=== PATIENT | male | born 1985 | race Caucasian/White ===

== ENCOUNTER 2016-12-15 12:10 | Emergency (ER) | payer SELFPAY ==
[2016-12-15 12:19] VITALS: BP 132/75; PULSE 68; TEMP 98; BMI 23.8
--- NOTE | 2016-12-15 13:23 | PDOC ---
History of Present Illness - General Chief Complaint: Rash Stated Complaint: INSECT BITE Time Seen by Provider: 12/15/16 13:05 History Source: Patient Exam Limitations: No Limitations - History of Present Illness Initial Comments: 12/15/16 13:21 Patient is a 31-year-old male, no significant medical history currently on no medication and presents with multiple bug bites, one to left side of face with lower eyelid swelling, 2 to left lower leg, 1 to left upper leg with surrounding erythema. Areas are pruritic, patient denies any recent travel. Fever. No pain. Areas are pruritic. No streaking. Allergies: No known allergies Medications: Medication list Family History: Non-contributory Social History: Denies smoking, alcohol use, or IVDU Vital signs on arrival are notable for pulse of 96. Review of Systems GENERAL/CONSTITUTIONAL: No fever or chills. No weakness. No weight change. HEAD, EYES, EARS, NOSE AND THROAT: No change in vision. No ear pain or discharge. No sore throat. CARDIOVASCULAR: No chest pain or shortness of breath. RESPIRATORY: No cough, wheezing, or hemoptysis. GASTROINTESTINAL: No nausea, vomiting, diarrhea or constipation. No rectal bleeding. GENITOURINARY: No dysuria, frequency, or change in urination. MUSCULOSKELETAL: No joint or muscle swelling or pain. No neck or back pain. SKIN: No rash or easy bruising. Multiple pruritic macular lesions to legs and one to face. Swelling to the left lower lid. NEUROLOGIC: No headache, vertigo, loss of consciousness, or loss of sensation. ENDOCRINE: No increased thirst. No abnormal weight change. HEMATOLOGIC/LYMPHATIC: No anemia, easy bleeding, or history of blood clots. No Lymphadenopathy ALLERGIC/IMMUNOLOGIC: No hives or skin allergy. No latex allergy. Physical Exam: GENERAL: The patient is awake, alert, and fully oriented, in no acute distress. HEAD: Normal with no signs of trauma. EYES: Pupils equal, round and reactive to light, extraocular movements intact, sclera anicteric, conjunctiva clear. Edema to the left lower lid, there is a small defined reddened area consistent with localized bug bite reaction. ENT: Ears normal, nares patent, oropharynx clear without exudates. Moist mucous membranes. No uvula deviation NECK: Normal range of motion, supple without lymphadenopathy, JVD, or masses. LUNGS: Breath sounds equal, clear to auscultation bilaterally. No wheezes, and no crackles. HEART: Regular rate and rhythm, normal S1 and S2 without murmur, rub or gallop. ABDOMEN: Soft, nontender, normoactive bowel sounds. No guarding, no rebound. No masses. No bruising or abrasions MUSCULOSKELETAL: Normal range of motion, no edema. No clubbing or cyanosis. No cords, erythema, or tenderness. No CVA Tenderness with fist. NEUROLOGICAL: Cranial nerves II through XII grossly intact. Normal speech, normal gait. PSYCH: Normal mood, normal affect. SKIN: Warm, Dry, normal turgor, total pruritic lesions, one to face with surrounding edema, 2 to lower leg erythematous with surrounding edema, no erythema, 1 to left upper leg with defined circumferential erythema. 12/15/16 14:14 Past History - Past Medical History Allergies/Adverse Reactions: Allergies Allergy/AdvReac Type Severity Reaction Status Date / Time No Known Allergies Allergy Verified 12/15/16 12:19 Home Medications: Ambulatory Orders Emtricitabine/Tenofovir [Truvada -] 1 tab PO DAILY 08/03/14 Doxycycline Hyclate 200 mg PO ONCE #2 capsule 12/15/16 Hydrocortisone 0.5% Cream [Hytone 0.5% Cream -] 1 applic TP BID #1 tube HIV: Yes Suicide Attempt (Hx): No - Psycho/Social/Smoking Cessation Hx Anxiety: Yes Suicidal Ideation: No Smoking History: Never smoked Information on smoking cessation initiated: No Hx Alcohol Use: Yes (2 DAYS A WEEK) Substance Use Type: Alcohol *Physical Exam - Vital Signs Last Vital Signs Temp Pulse Resp BP Pulse Ox 98 F 68 18 132/75 99 12/15/16 12:17 12/15/16 12:17 12/15/16 12:17 12/15/16 12:17 12/15/16 12:17 Medical Decision Making - Medical Decision Making 12/15/16 14:08 A/P: Patient here for valuation multiple pruritic bites, one to the face with surrounding edema, 1 to left leg with circumferential erythema. Because of the edema patient was concerned it may be a spider bite. There is no necrotic center, or area with central punctum. The reddened area to the left upper leg without bulls eye pattern. Represents more of a localized reaction to a bug bite. ? mosquito however can not rule out tick bite fully. I will send blood for lyme and Ehrilichia. Doxy 200 mg PO x 1. Hydrocortisone cream to area for pruritus. If any increased redness, swelling, fever, or any other concerns will need to return back to ER. I discussed the physical exam findings, ancillary test results and final diagnoses with the patient. I answered all of the patient's questions. The patient was satisfied with the care received and felt comfortable with the discharge plan and treatment plan. The patient will call to arrange follow-up and will return to the Emergency Department with any new, persistent or worsening symptoms. *DC/Admit/Observation/Transfer Diagnosis at time of Disposition: Bug bite Qualifiers: Encounter type: initial encounter Qualified Code(s): W57.XXXA - Bitten or stung by nonvenomous insect and other nonvenomous arthropods, initial encounter - Discharge Dispostion Disposition: HOME Condition at time of disposition: Good Admit: No - Prescriptions Prescriptions: Doxycycline Hyclate 200 mg PO ONCE #2 capsule Hydrocortisone 0.5% Cream [Hytone 0.5% Cream -] 1 applic TP BID #1 tube - Referrals Referrals: Marcel Bazan [Non Staff, Medical] - - Patient Instructions Additional Instructions: Please monitor area for an increased redness swelling or signs of infection including fever , if noted return to emergency department
== END 2016-12-15 14:20 | disposition home or self-care (01) ==
LOC: JERFT 12:10
DX: S00.86XA Insect bite (nonvenomous) of other part of head, initial encounter (principal); S80.862A Insect bite (nonvenomous), left lower leg, initial encounter; W57.XXXA Bitten or stung by nonvenomous insect and other nonvenomous arthropods, initial encounter; Y93.89 Activity, other specified; Y92.89 Other specified places as the place of occurrence of the external cause; Z21 Asymptomatic human immunodeficiency virus [HIV] infection status
CPT/HCPCS: 36415; 86618; 86666; 99281-25

== ENCOUNTER 2021-11-30 10:30 | Emergency (ER) | payer SELFPAY ==
[2021-11-30 10:43] VITALS: BP 115/71; PULSE 71; RESP 18; TEMP 98.8; BMI 28.1
[2021-11-30] MEDS ORDERED: IBUPROFEN 600 MG TABLET (FP) PO ONE ×2 (11:57→12:15)
== END 2021-11-30 14:00 | disposition home or self-care (01) ==
LOC: JER 10:30
DX: R07.9 Chest pain, unspecified (principal)
CPT/HCPCS: 71046-TC-FY; 93005; 93010; 99284-25; C9803-CS; U0003; U0005

== ENCOUNTER 2022-10-19 12:21 | Emergency (ER) | payer SELFPAY ==
[2022-10-19 12:30] VITALS: BP 130/80; PULSE 74; RESP 18; TEMP 98.2; BMI 25.0
[2022-10-19 13:13] LABS: PH,URINE 5.5 (5.0-8.0); URINE APPEARANCE CLEAR; URINE BILIRUBIN NEGATIVE (NEGATIVE); URINE COLOR YELLOW; URINE GLUCOSE (UA) NEGATIVE (NEGATIVE); URINE KETONE NEGATIVE (NEGATIVE); URINE LEUK ESTERASE NEGATIVE (NEGATIVE); URINE NITRITE NEGATIVE (NEGATIVE); URINE PROTEIN NEGATIVE (NEGATIVE); URINE UROBILINOGEN 0.2 mg/dL (0.2-1.0)
[2022-10-19 15:01] LABS: EOS % 3.5 % (0-4.5); HEMOGLOBIN 14.7 GM/dL (11.7-16.9); LYMPH % 36.7 % (8-40); MCH 35.5 pg (25.7-33.7); MCHC 34.9 g/dl (32.0-35.9); MEAN CELL VOLUME 101.6 fl (80-96); MEAN PLT VOLUME 9.6 fl (7.5-11.1); MONO % 13.6 % (3.8-10.2); NEUT % 45.2 % (42.8-82.8); PLATELET COUNT 174 10^3/uL (134-434); RBC 4.14 M/mm3 (4.00-5.60); RDW 13.5 % (11.9-15.9); WHITE BLOOD COUNT 2.3 K/mm3 (4.0-10.0)
[2022-10-19 15:14] LABS: ACTIVATED PTT 30.7 SECONDS (25.2-36.5)
[2022-10-19 15:45] LABS: POTASSIUM 4.1 mmol/L (3.5-5.1)
[2022-10-19 15:49] LABS: ALBUMIN 3.8 g/dl (3.4-5.0); CALCIUM 8.8 mg/dL (8.5-10.1)
[2022-10-19 15:52] LABS: CREATININE 0.6 mg/dL (0.55-1.3)
[2022-10-19 15:54] LABS: BILIRUBIN,TOTAL 0.6 mg/dL (0.2-1); TOT PROT 9.3 g/dl (6.4-8.2)
[2022-10-19 17:02] LABS: INR 1.04 (0.83-1.09); PROTHROMBIN TIME (PATIENT) 12.1 SEC (9.7-13.0)
== END 2022-10-19 19:16 | disposition home or self-care (01) ==
LOC: JERFT 12:21
DX: R36.1 Hematospermia (principal); F10.10 Alcohol abuse, uncomplicated; R74.01 Elevation of levels of liver transaminase levels
CPT/HCPCS: 36415; 80053; 81003; 82977; 84153; 84154; 85025; 85610; 85730; 86705; 87086; 87340; 87517; 87522; 99283-25

== ENCOUNTER 2023-11-28 11:23 | Inpatient (IN) | payer OTHER ==
[2023-11-28] MEDS ORDERED: ACETAMINOPHEN INJECTION 100 ML IVPB ONE (12:12)
[2023-11-28] MEDS: ACETAMINOPHEN 1000 MG/100 ML BAG IVPB ONE (12:32)
[2023-11-28 12:39] LABS: BASO % 0.9 % (0-2.0); EOS % 0.3 % (0-4.5); HEMATOCRIT 36.6 % (35.4-49); HEMOGLOBIN 12.7 GM/dL (11.7-16.9); LYMPH % 12.3 % (8-40); MCH 35.9 pg (25.7-33.7); MCHC 34.6 g/dl (32.0-35.9); MEAN CELL VOLUME 103.8 fl (80-96); MONO % 6.2 % (3.8-10.2); NEUT % 80.3 % (42.8-82.8); PLATELET COUNT 307 10^3/uL (134-434); RBC 3.53 M/mm3 (4.00-5.60); RDW 12.8 % (11.9-15.9); WHITE BLOOD COUNT 7.6 K/mm3 (4.0-10.0)
[2023-11-28 12:46] LABS: INR 1.1 (0.83-1.09); PROTHROMBIN TIME (PATIENT) 12.6 SEC (9.7-13.0)
[2023-11-28 12:48] LABS: ACTIVATED PTT 33.7 SECONDS (25.2-36.5)
[2023-11-28 12:57] LABS: POTASSIUM 3.8 mmol/L (3.5-5.1)
[2023-11-28 12:59] LABS: ALBUMIN 2.2 g/dl (3.4-5.0); BLOOD UREA NITROGEN 5.3 mg/dL (7-18); CALCIUM 7.6 mg/dL (8.5-10.1)
[2023-11-28 13:02] LABS: CREATININE 0.5 mg/dL (0.55-1.3)
[2023-11-28 13:03] LABS: TOT PROT 7.7 g/dl (6.4-8.2)
[2023-11-28 13:04] LABS: BILIRUBIN,TOTAL 0.7 mg/dL (0.2-1)
[2023-11-28 13:09] LABS: N-TERMINAL BNP 180.5 pg/ml (5-125)
[2023-11-28 13:12] LABS: VENOUS BASE EXCESS 1.4 mmol/L (-2-2); VENOUS O2 SATURATION 88.1 % (70-80); VENOUS PCO2 36.2 mmHg (38-52); VENOUS PH 7.456 (7.310-7.410)
[2023-11-28] MEDS ORDERED: SIMETHICONE 80 MG TAB.CHEW (FP) ONE (13:57)
[2023-11-28] MEDS ORDERED: MAG HYDROX/AL HYDROX/SIMETH 30 ML UNIT-DOSE CUP ONE (13:57)
[2023-11-28] MEDS ORDERED: SULFAMETHOXAZOLE/TRIMETHOPRIM 800MG/160MG D.S. TABLET ONE ×2 (14:01→15:13)
[2023-11-28] MEDS ORDERED: FLUCONAZOLE 100 MG TABLET (UD) ONE (14:01)
[2023-11-28] MEDS ORDERED: DEXAMETHASONE 4 MG TABLET (FP) ONE (14:01)
[2023-11-28] MEDS ORDERED: predniSONE 20 MG TABLET (UD) ONE (14:03)
[2023-11-28] MEDS ORDERED: CEFTRIAXONE 1 GM/50 ML BAG ONE (14:40)
[2023-11-28] MEDS: FLUCONAZOLE 100 MG TABLET (UD) PO ONE (14:43)
[2023-11-28] MEDS: SODIUM CHLORIDE 0.9% 500 ML INFUS.BAG IV ONE (14:43)
[2023-11-28] MEDS: predniSONE 20 MG TABLET (UD) PO ONE (14:47)
[2023-11-28] MEDS ORDERED: SULFAMETHOXAZOLE 80 MG/TRIMETHOPRIM 16 MG/ML VIAL IVPB ONE (15:17)
[2023-11-28] MEDS: SULFAMETHOXAZOLE/TRIMETHOPRIM 800MG/160MG D.S. TABLET PO ONE ×2 (15:39)
[2023-11-28 16:20] LABS: PH,URINE 7.5 (5.0-8.0); URINE APPEARANCE CLEAR; URINE BILIRUBIN NEGATIVE (NEGATIVE); URINE COLOR YELLOW; URINE GLUCOSE (UA) NEGATIVE (NEGATIVE); URINE KETONE NEGATIVE (NEGATIVE); URINE LEUK ESTERASE NEGATIVE (NEGATIVE); URINE NITRITE NEGATIVE (NEGATIVE); URINE PROTEIN NEGATIVE (NEGATIVE)
[2023-11-28] MEDS: AZITHROMYCIN IVPB 500 MG in DEXTROSE 5%-WATER - 250 ML IVPB ONE (16:38)
[2023-11-28] MEDS: SULFAMETHOXAZOLE/TRIMETHOPRIM 320 MG in DEXTROSE 5%-WATER - 250 ML IVPB ONE (17:43)
[2023-11-28] MEDS ORDERED: SULFAMETHOXAZOLE 80 MG/TRIMETHOPRIM 16 MG/ML VIAL IVPB SCH (18:00)
[2023-11-28] MEDS: predniSONE 20 MG TABLET (UD) PO SCH (21:34)
[2023-11-28] MEDS ORDERED: predniSONE 20 MG TABLET (UD) PO ONE (23:00)
[2023-11-29] MEDS: SULFAMETHOXAZOLE/TRIMETHOPRIM 300 MG in DEXTROSE 5%-WATER - 500 ML IVPB SCH ×2 (01:32→12:50)
[2023-11-29 08:18] LABS: BASO % 0.5 % (0-2.0); HEMATOCRIT 35.5 % (35.4-49); HEMOGLOBIN 12.5 GM/dL (11.7-16.9); LYMPH % 21.8 % (8-40); MCH 36.6 pg (25.7-33.7); MCHC 35.2 g/dl (32.0-35.9); MEAN CELL VOLUME 104.1 fl (80-96); MEAN PLT VOLUME 8.5 fl (7.5-11.1); MONO % 4.2 % (3.8-10.2); NEUT % 73.5 % (42.8-82.8); PLATELET COUNT 274 10^3/uL (134-434); RBC 3.42 M/mm3 (4.00-5.60); RDW 12.6 % (11.9-15.9); WHITE BLOOD COUNT 3.3 K/mm3 (4.0-10.0)
[2023-11-29 08:44] LABS: POTASSIUM 4.1 mmol/L (3.5-5.1)
[2023-11-29 08:50] LABS: BLOOD UREA NITROGEN 5.8 mg/dL (7-18)
[2023-11-29 08:52] LABS: PHOSPHOROUS 4.5 mg/dL (2.5-4.9)
[2023-11-29 08:53] LABS: CREATININE 0.4 mg/dL (0.55-1.3)
[2023-11-29 08:54] LABS: BILIRUBIN,TOTAL 0.8 mg/dL (0.2-1); TOT PROT 7.3 g/dl (6.4-8.2)
[2023-11-29] MEDS: FLUCONAZOLE 100 MG TABLET (UD) PO SCH (10:35)
[2023-11-29] MEDS: THIAMINE 100 MG TABLET PO SCH (10:35)
[2023-11-29] MEDS: FOLIC ACID 1 MG TABLET (FP) PO SCH (10:35)
[2023-11-29] MEDS: ENOXAPARIN NA (PORCINE) 40 MG/0.4 ML DISP.SYRIN SQ SCH (10:38)
[2023-11-29] MEDS: SULFAMETHOXAZOLE 80 MG/TRIMETHOPRIM 16 MG/ML VIAL IVPB SCH (12:49)
[2023-11-29] MEDS: CEFTRIAXONE 1 GM in DEXTROSE 5%-WATER - 50 ML IVPB SCH (16:07)
[2023-11-30 06:45] LABS: HEMATOCRIT 36.7 % (35.4-49); MCHC 35.4 g/dl (32.0-35.9); MEAN CELL VOLUME 104.7 fl (80-96); MEAN PLT VOLUME 8.9 fl (7.5-11.1); PLATELET COUNT 303 10^3/uL (134-434); RBC 3.51 M/mm3 (4.00-5.60); RDW 12.7 % (11.9-15.9); WHITE BLOOD COUNT 9.5 K/mm3 (4.0-10.0)
[2023-11-30 07:13] LABS: POTASSIUM 4.5 mmol/L (3.5-5.1)
[2023-11-30 07:16] LABS: ALBUMIN 2.2 g/dl (3.4-5.0); CALCIUM 8.2 mg/dL (8.5-10.1); MAGNESIUM 2.1 mg/dL (1.8-2.4)
[2023-11-30 07:19] LABS: CREATININE 0.5 mg/dL (0.55-1.3); PHOSPHOROUS 4.1 mg/dL (2.5-4.9)
[2023-11-30 07:21] LABS: BILIRUBIN,TOTAL 0.4 mg/dL (0.2-1); TOT PROT 7.5 g/dl (6.4-8.2)
[2023-11-30] MEDS: ALBUTEROL SO4 0.083% IH SOL 2.5 MG/3 ML VIAL.NEB. NEB SCH (15:55)
[2023-11-30 23:47] VITALS: BMI 22.1
[2023-12-01 07:57] LABS: POTASSIUM 5.1 mmol/L (3.5-5.1)
[2023-12-01 08:03] LABS: CALCIUM 8.3 mg/dL (8.5-10.1)
[2023-12-01 08:04] LABS: ALBUMIN 2.3 g/dl (3.4-5.0); BLOOD UREA NITROGEN 11.2 mg/dL (7-18); MAGNESIUM 2.2 mg/dL (1.8-2.4)
[2023-12-01 08:07] LABS: CREATININE 0.6 mg/dL (0.55-1.3)
[2023-12-01 08:08] LABS: BILIRUBIN,TOTAL 0.5 mg/dL (0.2-1)
[2023-12-01 08:09] LABS: TOT PROT 7.3 g/dl (6.4-8.2)
[2023-12-01 08:17] LABS: HEMATOCRIT 36.1 % (35.4-49); HEMOGLOBIN 12.8 GM/dL (11.7-16.9); MCH 36.8 pg (25.7-33.7); MCHC 35.4 g/dl (32.0-35.9); MEAN CELL VOLUME 103.8 fl (80-96); PLATELET COUNT 315 10^3/uL (134-434); RBC 3.48 M/mm3 (4.00-5.60); RDW 13.1 % (11.9-15.9); WHITE BLOOD COUNT 12.2 K/mm3 (4.0-10.0)
[2023-12-02 07:27] LABS: HEMATOCRIT 36.7 % (35.4-49); HEMOGLOBIN 12.7 GM/dL (11.7-16.9); MCH 36.5 pg (25.7-33.7); MCHC 34.7 g/dl (32.0-35.9); MEAN CELL VOLUME 105.1 fl (80-96); MEAN PLT VOLUME 8.7 fl (7.5-11.1); PLATELET COUNT 304 10^3/uL (134-434); RBC 3.49 M/mm3 (4.00-5.60); RDW 12.7 % (11.9-15.9); WHITE BLOOD COUNT 11.1 K/mm3 (4.0-10.0)
[2023-12-02 07:35] LABS: ALBUMIN 2.3 g/dl (3.4-5.0); BLOOD UREA NITROGEN 11.2 mg/dL (7-18)
[2023-12-02 07:36] LABS: BILIRUBIN,TOTAL 0.3 mg/dL (0.2-1); CALCIUM 8.3 mg/dL (8.5-10.1); TOT PROT 7.4 g/dl (6.4-8.2)
[2023-12-02 07:37] LABS: MAGNESIUM 2.3 mg/dL (1.8-2.4)
[2023-12-02 07:38] LABS: CREATININE 0.6 mg/dL (0.55-1.3); PHOSPHOROUS 4.1 mg/dL (2.5-4.9)
[2023-12-02 10:15] LABS: ANISOCYTOSIS 2+; MACROCYTOSIS 2+
[2023-12-03 07:08] LABS: HEMATOCRIT 37.1 % (35.4-49); HEMOGLOBIN 13.1 GM/dL (11.7-16.9); MCHC 35.2 g/dl (32.0-35.9); MEAN CELL VOLUME 105.2 fl (80-96); MEAN PLT VOLUME 9.1 fl (7.5-11.1); PLATELET COUNT 314 10^3/uL (134-434); RBC 3.52 M/mm3 (4.00-5.60); RDW 12.7 % (11.9-15.9); WHITE BLOOD COUNT 9.3 K/mm3 (4.0-10.0)
[2023-12-03 07:20] LABS: POTASSIUM 4.8 mmol/L (3.5-5.1)
[2023-12-03 07:24] LABS: CALCIUM 8.3 mg/dL (8.5-10.1)
[2023-12-03 07:25] LABS: MAGNESIUM 2.2 mg/dL (1.8-2.4)
[2023-12-03 07:28] LABS: ALBUMIN 2.5 g/dl (3.4-5.0); BLOOD UREA NITROGEN 12.9 mg/dL (7-18); CREATININE 0.5 mg/dL (0.55-1.3); PHOSPHOROUS 4.1 mg/dL (2.5-4.9)
[2023-12-03 07:29] LABS: BILIRUBIN,TOTAL 0.4 mg/dL (0.2-1)
[2023-12-03 07:30] LABS: TOT PROT 7.4 g/dl (6.4-8.2)
[2023-12-03] MEDS: predniSONE 20 MG TABLET (UD) PO SCH (09:36)
[2023-12-04 07:21] LABS: HEMOGLOBIN 12.7 GM/dL (11.7-16.9); MCH 36.7 pg (25.7-33.7); MCHC 35.3 g/dl (32.0-35.9); MEAN CELL VOLUME 104.1 fl (80-96); MEAN PLT VOLUME 8.9 fl (7.5-11.1); PLATELET COUNT 330 10^3/uL (134-434); RBC 3.45 M/mm3 (4.00-5.60); RDW 12.7 % (11.9-15.9); WHITE BLOOD COUNT 8.9 K/mm3 (4.0-10.0)
[2023-12-04 07:46] LABS: POTASSIUM 4.1 mmol/L (3.5-5.1)
[2023-12-04 07:48] LABS: ALBUMIN 2.4 g/dl (3.4-5.0)
[2023-12-04 07:49] LABS: BLOOD UREA NITROGEN 10.6 mg/dL (7-18); CALCIUM 8.4 mg/dL (8.5-10.1)
[2023-12-04 07:50] LABS: MAGNESIUM 2.4 mg/dL (1.8-2.4)
[2023-12-04 07:52] LABS: CREATININE 0.6 mg/dL (0.55-1.3); PHOSPHOROUS 4.5 mg/dL (2.5-4.9)
[2023-12-04 07:53] LABS: BILIRUBIN,TOTAL 0.4 mg/dL (0.2-1)
[2023-12-05] MEDS: NYSTATIN 500,000 UNITS/5 ML SUSPENSION PO SCH (00:20)
[2023-12-05 07:52] LABS: HEMATOCRIT 41.3 % (35.4-49); HEMOGLOBIN 14.5 GM/dL (11.7-16.9); MCH 37.1 pg (25.7-33.7); MCHC 35.1 g/dl (32.0-35.9); MEAN CELL VOLUME 105.5 fl (80-96); MEAN PLT VOLUME 8.6 fl (7.5-11.1); PLATELET COUNT 336 10^3/uL (134-434); POTASSIUM 5.5 mmol/L (3.5-5.1); RBC 3.91 M/mm3 (4.00-5.60); WHITE BLOOD COUNT 8.5 K/mm3 (4.0-10.0)
[2023-12-05 07:54] LABS: ALBUMIN 2.8 g/dl (3.4-5.0); BLOOD UREA NITROGEN 14.7 mg/dL (7-18); CALCIUM 8.6 mg/dL (8.5-10.1)
[2023-12-05 07:55] LABS: MAGNESIUM 2.5 mg/dL (1.8-2.4)
[2023-12-05 07:57] LABS: CREATININE 0.7 mg/dL (0.55-1.3)
[2023-12-05 07:58] LABS: PHOSPHOROUS 4.8 mg/dL (2.5-4.9)
[2023-12-05 07:59] LABS: BILIRUBIN,TOTAL 0.4 mg/dL (0.2-1); TOT PROT 7.9 g/dl (6.4-8.2)
[2023-12-05] MEDS ORDERED: SODIUM ZIRCONIUM CYCLOSILICATE (LOKELMA) 5 GM PACKET PO ONE (10:00)
[2023-12-05] MEDS: ATOVAQUONE 750 MG/5 ML (UNIT-DOSE PACKAGING) PO SCH (10:30)
[2023-12-05] MEDS: SODIUM ZIRCONIUM CYCLOSILICATE (LOKELMA) 5 GM PACKET PO SCH (12:43)
[2023-12-06 08:53] LABS: HEMATOCRIT 37.6 % (35.4-49); HEMOGLOBIN 12.9 GM/dL (11.7-16.9); MCH 36.4 pg (25.7-33.7); MCHC 34.4 g/dl (32.0-35.9); MEAN CELL VOLUME 105.9 fl (80-96); MEAN PLT VOLUME 8.5 fl (7.5-11.1); PLATELET COUNT 301 10^3/uL (134-434); RBC 3.55 M/mm3 (4.00-5.60); RDW 13.3 % (11.9-15.9); WHITE BLOOD COUNT 8.7 K/mm3 (4.0-10.0)
[2023-12-06 09:08] LABS: ALBUMIN 2.5 g/dl (3.4-5.0); BLOOD UREA NITROGEN 13.8 mg/dL (7-18); CALCIUM 8.3 mg/dL (8.5-10.1); MAGNESIUM 2.4 mg/dL (1.8-2.4)
[2023-12-06 09:11] LABS: CREATININE 0.4 mg/dL (0.55-1.3); PHOSPHOROUS 4.3 mg/dL (2.5-4.9)
[2023-12-06 09:12] LABS: BILIRUBIN,TOTAL 0.5 mg/dL (0.2-1); TOT PROT 6.7 g/dl (6.4-8.2)
[2023-12-06 13:13] LABS: INR 0.94 (0.83-1.09); PROTHROMBIN TIME (PATIENT) 10.8 SEC (9.7-13.0)
[2023-12-06 13:15] LABS: ACTIVATED PTT 30.9 SECONDS (25.2-36.5)
[2023-12-07 06:43] LABS: HEMATOCRIT 40.2 % (35.4-49); HEMOGLOBIN 13.9 GM/dL (11.7-16.9); MCH 36.7 pg (25.7-33.7); MCHC 34.5 g/dl (32.0-35.9); MEAN CELL VOLUME 106.5 fl (80-96); MEAN PLT VOLUME 8.2 fl (7.5-11.1); PLATELET COUNT 320 10^3/uL (134-434); RBC 3.78 M/mm3 (4.00-5.60); RDW 13.3 % (11.9-15.9); WHITE BLOOD COUNT 7.1 K/mm3 (4.0-10.0)
[2023-12-07 07:07] LABS: POTASSIUM 3.7 mmol/L (3.5-5.1)
[2023-12-07 07:16] LABS: CALCIUM 8.3 mg/dL (8.5-10.1)
[2023-12-07 07:17] LABS: ALBUMIN 2.7 g/dl (3.4-5.0); BLOOD UREA NITROGEN 11.1 mg/dL (7-18); MAGNESIUM 2.2 mg/dL (1.8-2.4)
[2023-12-07 07:20] LABS: CREATININE 0.5 mg/dL (0.55-1.3); PHOSPHOROUS 4.8 mg/dL (2.5-4.9)
[2023-12-07 07:22] LABS: BILIRUBIN,TOTAL 0.4 mg/dL (0.2-1); TOT PROT 7.2 g/dl (6.4-8.2)
[2023-12-08 08:32] LABS: ALBUMIN 2.6 g/dl (3.4-5.0); BLOOD UREA NITROGEN 18.6 mg/dL (7-18); CALCIUM 8.4 mg/dL (8.5-10.1)
[2023-12-08 08:35] LABS: CREATININE 0.5 mg/dL (0.55-1.3)
[2023-12-08 08:36] LABS: BILIRUBIN,TOTAL 0.4 mg/dL (0.2-1); PHOSPHOROUS 4.6 mg/dL (2.5-4.9)
[2023-12-08 08:37] LABS: TOT PROT 6.7 g/dl (6.4-8.2)
[2023-12-08] MEDS: predniSONE 20 MG TABLET (UD) PO SCH (10:29)
[2023-12-08 14:44] VITALS: BP 116/68; PULSE 96; RESP 16; TEMP 98.1
== END 2023-12-08 18:45 | disposition home or self-care (01) | DRG 892 ==
LOC: JER 11:23 → JERBED 14:08 → J4W 18:05
PROVIDERS: ADMIT Internal Medicine; ATTEND Internal Medicine
DX: B59 Pneumocystosis (principal); B20 Human immunodeficiency virus [HIV] disease; B37.81 Candidal esophagitis; E87.1 Hypo-osmolality and hyponatremia; B37.0 Candidal stomatitis; K70.10 Alcoholic hepatitis without ascites; F10.20 Alcohol dependence, uncomplicated; R79.89 Other specified abnormal findings of blood chemistry; D75.89 Other specified diseases of blood and blood-forming organs
CPT/HCPCS: 0241U-QW; 36415; 70450-TC; 71045-TC-FY; 71260-TC; 74177-TC; 76705-TC; 80053; 81003; 82607; 82746; 82803; 82962; 83615; 83735; 83880; 84100; 84484; 85025; 85027; 85610; 85730; 86359; 86360; 86705; 86803; 86850; 86900; 86901; 87040; 87086; 87340; 87517; 87899; 93005; 93010; 94640; 94761; 99285-25; J0131; Q9967